=== PATIENT | female | born 1965 | race Two or more races ===

== ENCOUNTER 2020-10-29 08:40 | Outpatient (CLI) | payer OTHER ==
[~2020-10-29 08:40] MED LIST: AZELASTINE137 MCG/0. NS; CATAFLAM50 MG PO; CLONAZEPAM1 MG; IPRATROPIUM0.2 MG/ML IH; ORPH100T PO; PROVENTIL3 ML/2.5 M IH; SINGULAIR10 MG PO; SYMBICORT 16010.2 GM IH; XOPENEX0.63 MG/3 IH; ZOLOFT25 MG
== END 2020-10-29 08:55 | disposition home or self-care (01) ==
LOC: SONOGRAMA 08:40
PROVIDERS: ATTEND Internal Medicine Gastroenterology
DX: R10.84 Generalized abdominal pain (principal)

== ENCOUNTER 2024-01-23 13:16 | Outpatient (CLI) | payer OTHER ==
[2024-01-23 13:31] LABS: HEMATOCRIT 42.4 % (36.0-45.00); MEAN CELL VOLUME 89.9 fL (80.00-100.00); MEAN CORPUSCULAR HEMOGLOBIN 29.7 pg (27.00-32.0); PLATELET COUNT 233 K/uL (150-450); RED BLOOD COUNT 4.72 M/uL (4.00-6.00); RED CELL DISTRIBUTION WIDTH 14.7 % (11.5-14.5)
[2024-01-23 22:15] LABS: MYCOPLASMA PNEUMONIAE IGM NON REACTIVE (NO REACTIVE)
== END 2024-01-23 23:00 | disposition home or self-care (01) ==
LOC: LAB 13:16
PROVIDERS: ATTEND Internal Medicine Pulmonary Disease
DX: J06.9 Acute upper respiratory infection, unspecified (principal); J11.1 Influenza due to unidentified influenza virus with other respiratory manifestations; Z20.822 Contact with and (suspected) exposure to COVID-19